=== PATIENT | female | born 1965 | race Caucasian/White ===

== ENCOUNTER → 2021-08-22 15:20 | Outpatient (CLI) | payer OTHER, SELFPAY ==
--- NOTE | ~2021-08-22 | XR_ITS ---
EXAMINATION: XR knee RT 3V DATE: 08/22/2021 16:26 INDICATION: Right knee pain TECHNIQUE: Four views of the right knee were obtained. COMPARISON: None. FINDINGS: Alignment is normal. No fracture or osteochondral lesion. There is moderate tricompartmenta l osteoarthritis of the knee. There is a small knee joint effusion. Soft tissues are unremarkable. IMPRESSION: 1. Moderate tricompartmental osteoarthritis of the knee. Reviewed, dictated and finalized at location A. [employer]
--- NOTE | ~2021-08-22 | XR_ITS ---
EXAMINATION: XR knee LT 3V DATE: 08/22/2021 16:26 INDICATION: Left knee pain TECHNIQUE: Three views of the left knee were obtained. COMPARISON: None. FINDINGS: Alignment is normal. No fracture or osteochondral lesion. There is moderate tricompartmenta l osteoarthritis of the knee. No joint effusion/synovitis. Soft tissues are unremarkable. IMPRESSION: 1. Moderate tricompartmental osteoarthritis. Reviewed, dictated and finalized at location A. [employer] FORESTER
== END ==
PROVIDERS: Visit Provider Nurse Practitioner Family
DX: M17.0 Bilateral primary osteoarthritis of knee (principal)
CPT/HCPCS: 73562